=== PATIENT | female | born 1930 | race Hispanic/Latino ===

== ENCOUNTER 2017-10-16 13:54 | Emergency (ER) | payer MEDICARE, MEDICAID ==
[2017-10-16 13:54] VITALS: BMI 25.0
[2017-10-16 14:51] VITALS: BP 148/76; PULSE 65; RESP 18; TEMP 97.3; O2SAT 98
--- NOTE | 2017-10-16 16:02 | ED PDOC ---
Lower Extremity Pain/Injury Time Seen by Provider: 10/16/17 15:05 Chief Complaint (Nursing): Lower Extremity Problem/Injury Chief Complaint (Provider): Calf pain History Per: Patient History/Exam Limitations: no limitations Additional Complaint(s): 87yo female, sent to the ED by [facility] to rule out DVT. Patient states when she was being examined by the provider at [facility], she had calf pain "when he squeezed." Patient is non-ambulatory and uses a wheelchair. She denies any chest pain, shortness of breath, fever or trauma to her lower extremities. No other complaints. Past Medical History Reviewed: Historical Data, Nursing Documentation, Vital Signs Vital Signs: Last Vital Signs Temp 97.3 F L 10/16/17 14:47 Pulse 65 10/16/17 14:47 Resp 18 10/16/17 14:47 BP 148/76 10/16/17 14:47 Pulse Ox 98 10/16/17 14:47 - Medical History PMH: Arthritis, Depression, Diverticulitis, Fractures (RT HIP REPLACEMENT, RT ANKLE FX), Gall Bladder Disease (CHOLECYSTECTOMY), HTN, Peripheral Edema - Surgical History Surgical History: Cholecystectomy - Family History Family History: States: No Known Family Hx - Home Medications Home Medications: Ambulatory Orders Medication Instructions Recorded Losartan Potassium 50 mg PO DAILY 06/05/13 Morphine [Morphine Extended 30 mg PO PRN PRN 06/05/13 Release Tab] Oxycodone Hydrochloride [Oxycontin] 30 mg PO PRN PRN 06/05/13 Alprazolam [Xanax] 0.25 mg PO BID PRN 09/14/14 Furosemide [Lasix] 20 mg PO MWF 09/14/14 Magnesium Oxide 400 mg PO DAILY 09/14/14 Pantoprazole Sodium [Protonix] 40 mg PO DAILY 09/14/14 Potassium Chloride 10 mg PO MWF 09/14/14 - Allergies Allergies/Adverse Reactions: Allergies Allergy/AdvReac Type Severity Reaction Status Date / Time No Known Allergies Allergy Verified 10/16/17 14:47 Review of Systems ROS Statement: Except As Marked, All Systems Reviewed And Found Negative Constitutional: Negative for: Fever, Chills Cardiovascular: Negative for: Chest Pain Respiratory: Negative for: Shortness of Breath Musculoskeletal: Positive for: Other (calf pain upon examination at [facility]) Physical Exam - Reviewed Nursing Documentation Reviewed: Yes Vital Signs Reviewed: Yes - Physical Exam Appears: Positive for: No Acute Distress Head Exam: Positive for: ATRAUMATIC, NORMAL INSPECTION, NORMOCEPHALIC Skin: Positive for: Normal Color Eye Exam: Positive for: Normal appearance Neck: Positive for: Supple Cardiovascular/Chest: Positive for: Regular Rate, Rhythm Respiratory: Positive for: Normal Breath Sounds. Negative for: Respiratory Distress Extremity: Positive for: Calf Tenderness (bilateral), Other (bilateral lower extremities in dressings) Neurologic/Psych: Positive for: Alert, Oriented - ECG O2 Sat by Pulse Oximetry: 98 (RA) Pulse Ox Interpretation: Normal Medical Decision Making Medical Decision Making: Time: 1550 Impression: Rule out DVT Plan: -- US Duplex lower extremities bilateral Reassess 17:45 Pt refusing ultrasound on LLE. Accession No. : [id number] Patient Name / ID : OSORIO REAL / [id number] Exam Date : 10/16/2017 17:51:39 ( Approved ) Study Comment : Sex / Age : F / 87Y Creator : Luda Ojeda MD Dictator : Luda Ojeda MD Professional Programmer Analyst : Cad Engineer : Luda Ojeda MD Approver2 : Report Date : 10/16/2017 18:21:54 My Comment : Right lower extremity ultrasound. Indication: Bilateral calf pain Technique: Duplex ultrasound evaluation of the right lower extremity Comparison: None available Findings: Soft tissue edema. There is normal flow, compressibility, and augmentation of the right common femoral, femoral, and popliteal veins. The right posterior tibial veins cannot be visualized due to overlying bandage. Impression: No evidence of deep venous thrombosis in the right lower extremity as above. Soft tissue edema. Scribe Attestation: Documented by Anny Limon acting as a scribe for Yuridia Nguyen MD. Provider Attestation: All medical record entries made by the Scribe were at my direction and personally dictated by me. I have reviewed the chart and agree that the record accurately reflects my personal performance of the history, physical exam, medical decision making, and the department course for this patient. I have also personally directed, reviewed, and agree with the discharge instructions and disposition. Disposition - Clinical Impression Clinical Impression: Calf pain - Disposition Disposition: Routine/Home Disposition Time: 19:28 Condition: STABLE Additional Instructions: FOLLOW-UP WITH WOUND CARE FOR REEVALUATION. Instructions: Chronic Wound Care (ED) Forms: [employer] (Turkmen)
--- NOTE | 2017-10-16 18:23 | US ---
Right lower extremity ultrasound. Indication: Bilateral calf pain Technique: Duplex ultrasound evaluation of the right lower extremity Comparison: None available Findings: Soft tissue edema. There is normal flow, compressibility, and augmentation of the right common femoral, femoral, and popliteal veins. The right posterior tibial veins cannot be visualized due to overlying bandage. Impression: No evidence of deep venous thrombosis in the right lower extremity as above. Soft tissue edema.
== END 2017-10-16 19:58 | disposition home or self-care (01) ==
LOC: H.ER 13:54
DX: M79.605 Pain in left leg (principal); F32.9 Major depressive disorder, single episode, unspecified; I10 Essential (primary) hypertension; Z96.641 Presence of right artificial hip joint

== ENCOUNTER 2018-02-05 06:02 | Day surgery (SDC) | payer MEDICARE, MEDICAID ==
[2018-01-08 11:59] VITALS: BMI 32.3
--- NOTE | 2018-02-05 07:16 | CP.SDSHP ---
Same Day Surgery H & P - History Proposed Procedure: right lower extremity debridement of nonhealing ulcerations Pre-Op Diagnosis: Right leg nonhealing ulcerations with nonviable tissue secondary to venous stasis - Allergies Allergies: Allergies cefepime Adverse Reaction (Verified 01/08/18 23:15) ITCHING - Physical Exam Vital Signs: Vital Signs 02/05/18 02/05/18 06:37 06:39 Temperature 99 F Pulse Rate 95 H 95 H Respiratory 20 Rate Blood Pressure 130/66 O2 Sat by Pulse 96 Oximetry Mental Status: Alert & Oriented x3 - Impression Impression: Pt was seen and examined in SDS. Pt NPO status was confirmed. All Pre-op testing and clearance was in the chart. Pt has exhausted all conservative treatment at this time and is opting for surgical intervention. Pt was explained procedure and post-operative course. All pt's questions were answered to satisfaction. No guarantees were made. Pt understands all risks, benefits and complications of procedure. Pt will follow-up with Dr. Cowart - Date & Time Date: 02/05/18 Time: 07:00 Short Stay Discharge - Short Stay Discharge Admitting Diagnosis/Reason for Visit: M86.371 Disposition: REHAB FACILITY/REHAB UNIT Referrals: Radha Butt MD [Primary Care Provider] - Additional Instructions (Diet, Activity): --Patient in good/stable condition for discharge from hospital. Pt to resume medications per medical reconciliation. Resume diet. Please keep dressing clean, dry, & intact to surgical site, use plastic bag over bandage for showering, call Dr. Cowart if you see signs of infection (redness, swelling, malodor), please make an appointment to see Dr. Cowart in office/clinic within 1 week for post-op check. Progress Note/Discharge Note with Instructions: - Patient evaluated bedside in recovery s/p surgical procedure. - After surgical procedure patient in NAD - (+) Void, (+) Appetite - Capillary refill time <3s and NVSI intact. - Patient denies complaints at this time - Post operative instructions and plan of care explained to patient at length. - Pt. acknowledges understanding. - Patient stable for DC per podiatric surgery
--- NOTE | 2018-02-05 07:16 | CP.PCM.PN ---
Subjective - Date & Time of Evaluation Date of Evaluation: 02/05/18 Time of Evaluation: 07:00 - Subjective Subjective: Podiatry Perioperative Note- Dr. Cowart 87 y.o female with PMHx of Arthritis, Depression, Diverticulitis, multiple fractures, Gall Bladder Disease, HTN, Peripheral Edema, Chronic Venous stasis seen and evaluated in [facility] for right lower extremity ulcers debridement. Patient reports that she has had these wounds for a long time. She reports the wounds are extremity painful, especially to touch. Patient reports nothing to eat or drink since yesterday. Patient denies nausea, fever, shortness of breath, or chills. Denies chest pain. PMHx: Arthritis, Depression, Diverticulitis, multiple fractures, Gall Bladder Disease, HTN, Peripheral Edema, Chronic Venous stasis PSHx: Cholecystectomy Allergies: cefepime- rash MEDS: see MAR list SH: Former smoker, denies drinking or illicit drug use Objective - Vital Signs/Intake and Output Vital Signs (last 24 hours): Temp Pulse Resp BP Pulse Ox 99 F 95 H 20 130/66 96 02/05/18 06:37 02/05/18 06:39 02/05/18 06:37 02/05/18 06:37 02/05/18 06:37 - Constitutional Appears: Well, Non-toxic, No Acute Distress - Extremities Exam Extremities Exam: absent: Calf Tenderness Additional comments: Vasc: DP and PT to the right unpalpable secondary to edema, left DP and PT 1/4 bilaterally, temperature warm to cool, moderate 2+ edema noted to the right LE Ortho: severe pain with palpation to the ulcerations site Neuro: gross sensation intact, protective sensation diminished Derm: 4 ulcerations noted to the right LE Ulceration #1: anterior lower 1/3 leg measuring approximately 4.7 x 2.3 x .1 cm Ulceration #2: anterior lateral 1/3 leg measuring approximately 2 x 1 x.1 cm Ulceration #3: lateral 1/3 leg measuring approximately 2 x 1 x .1 cm Ulceration #4: posterior 1/3 leg measuring approximately 18 x 21 x .2 cm Patient's ulcerations has similar presentation: wound base mainly fibrous 70% with granular 30% tissue, periwound intact with slight maceration, wound edges intact, periwound with mild erythema, mild odor, serous-sangious drainage, no undermining, no tunneling, no probe to bone Assessment and Plan - Assessment and Plan (Free Text) Assessment: 87 y.o female with PMHx of Arthritis, Depression, Diverticulitis, multiple fractures, Gall Bladder Disease, HTN, Peripheral Edema, Chronic Venous stasis seen and evaluated in SDS for right lower extremity ulcers debridement. Plan: Pt was seen and examined in SDS Pt NPO status was confirmed All Pre-op testing and clearance was in the chart Pt has exhausted all conservative treatment at this time and is opting for surgical intervention Pt was explained procedure and post-operative course All pt's questions were answered to satisfaction No guarantees were made Pt understands all risks, benefits and complications of procedure Pt will follow-up with Dr. Cowart
[2018-02-05] MEDS ORDERED: Lidocaine 1% Inj (20ml) IJ ONE (07:17)
[2018-02-05] MEDS ORDERED: Bupivacaine HCl 0.25% PF (30 ml) Inj IJ ONE (07:17)
[2018-02-05] MEDS ORDERED: Rocuronium 10 mg/ml (5 ml) ONE (07:24)
[2018-02-05] MEDS ORDERED: Propofol 10 mg/ml Inj (20 ML) ONE (07:24)
[2018-02-05] MEDS ORDERED: ePHEDrine 50 mg/ml Inj ONE (07:24)
[2018-02-05] MEDS ORDERED: Succinylcholine 200 mg/10 ml Inj IV ONE (07:24)
[2018-02-05] MEDS ORDERED: Midazolam 2 MG/2 ML VIAL ONE (07:24)
[2018-02-05] MEDS ORDERED: Etomidate 20 mg/10ml Inj IV ONE (07:28)
[2018-02-05] MEDS ORDERED: Lactated Ringer's 1,000 ML IV ONE (07:45)
[2018-02-05] MEDS ORDERED: Lidocaine 1% Inj (20ml) ONE (07:56)
[2018-02-05] MEDS ORDERED: Bupivacaine 0.5% Inj(30mL) ONE (07:56)
[2018-02-05] MEDS ORDERED: Bacitracin Ointment 30 GM TUBE ONE (07:57)
[2018-02-05] MEDS ORDERED: Bacitracin OINT 15GM TOP ONE (08:00)
--- NOTE | 2018-02-05 08:44 | CARD ---
APPROVED REPORT EKG Measurement Heart [id number] <Conclusion> Normal sinus rhythm Nonspecific ST and T wave abnormality Abnormal ECG
[2018-02-05] MEDS ORDERED: Lactated Ringer's 500 ML IV ONE (08:57)
--- NOTE | 2018-02-05 09:00 | PCM.SURG1 ---
Surgeon's Initial Post Op Note - Surgeon's Notes Surgeon: Dr. Kin Cowart Real Estate Sales Manager: Jackie Armas, PGY1 Type of Anesthesia: General Endo Anesthesia Administered By: Dr. Murillo Pre-Operative Diagnosis: Right leg nonhealing wound with nonviable tissue due to venous stasis Operative Findings: See operative report Post-Operative Diagnosis: Right leg nonhealing wound with nonviable tissue due to venous stasis Operation Performed: Right leg wound debridement Specimen/Specimens Removed: none Estimated Blood Loss: EBL {In ML}: 1 Blood Products Given: N/A Drains Used: No Drains Post-Op Condition: Good Date of Surgery/Procedure: 02/05/18 Time of Surgery/Procedure: 09:00
[2018-02-05] MEDS ORDERED: Oxycodone/Acetaminophen 5/325 mg Tab PO PRN ×2 (09:01)
[2018-02-05] MEDS ORDERED: HYDROmorphone 0.5 mg/0.5 ml ISec IVP PRN (09:05)
[2018-02-05] MEDS ORDERED: HYDROmorphone 0.5 mg/0.5 ml ISec ONE (09:09)
[2018-02-05 09:48] VITALS: RESP 18
[2018-02-05] MEDS ORDERED: oxyCODONE 5 mg Immediate Release Tab PO PRN (11:34)
[2018-02-05] MEDS ORDERED: Morphine 15 mg SR Tab PO SCH (11:45)
[2018-02-05 11:51] VITALS: BP 114/67; PULSE 81; TEMP 98.6; O2SAT 97
--- NOTE | 2018-02-06 06:07 | OP ---
PROCEDURE DATE: 02/05/2018 PREOPERATIVE DIAGNOSIS: Right leg nonhealing wound with nonviable tissue due to venous stasis. POSTOPERATIVE DIAGNOSIS: Right leg nonhealing wound with nonviable tissue due to venous stasis. NAME OF PROCEDURE: Right leg wound debridement. SURGEON: Kin Cowart DPM ADOBE MAKER: Priscilla Armas DPM, PGY-1 ANESTHESIOLOGIST: Dr. Murillo. TYPE OF ANESTHESIA: General. INDICATIONS: The patient is an 87-year-old female with the above-diagnosis. Patient complains of persisting pain to the posterior aspect of her right leg and ulcerations remain nonhealing. The patient has exhausted conservative treatment at this time and now requests surgical intervention. The patient signed the consent after careful explanation of the risks, benefits, complications, and alternatives to surgical procedure and wishes to proceed. No guarantees were given or implied. PREPARATION: The patient was brought into the operating room and placed on the operating room table in a supine position. A time-out was performed for identification of the correct patient and procedure. After the induction of general anesthesia, the right lower extremity was then prepped and draped in normal sterile manner and the procedure began. DESCRIPTION OF PROCEDURE: Attention was directed to the posterior aspect of the right leg where a full-thickness ulceration extending into subcutaneous tissue, measuring approximately 27 x 18 cm was noted; it was found to have a mixture of fibrin slough and black, necrotic tissue at its posterolateral aspect. There was a second superficial ulceration on the anterior aspect of the patient's right ankle measuring approximately 4.5 x 2.7 x 2.1 cm. Utilizing a #15 blade, the necrosis was excisionally debrided to healthy, bleeding tissue. Once all nonviable tissue was noted to be debrided, using the Versajet II system on setting 7, the ulceration was excisionally debrided of fibrotic and nonviable tissue until a mix of subcutaneous tissue and healthy bleeding granular tissue repaired. No purulent drainage was expressed in the ulcer. Xeroform with bacitracin was then applied to the posterior ulceration and then dressed with sterile gauze, ABDs, Cristina, Kerlix, and an Amari wrap. POSTOPERATIVE CONDITION: The patient tolerated the anesthesia and procedure well and was escorted to the recovery room with vital signs stable and neurovascular status intact to the right lower extremity. The patient is to keep the dressing clean, dry and intact. The patient will follow up with Dr. Cowart in the wound care center. Priscilla Armas DPM Kin Cowart DPM JOSEF
[2018-02-06] MEDS ORDERED: Potassium Chloride 20 mEq ER Tab PO SCH (09:00)
== END 2018-02-05 12:50 ==
LOC: H.OPSURG 06:02
PROVIDERS: ATTEND Student in an Organized Health Care Education/Training Program
DX: M86.371 Chronic multifocal osteomyelitis, right ankle and foot (principal); I10 Essential (primary) hypertension; M19.90 Unspecified osteoarthritis, unspecified site; I89.0 Lymphedema, not elsewhere classified; F32.9 Major depressive disorder, single episode, unspecified; L97.919 Non-pressure chronic ulcer of unspecified part of right lower leg with unspecified severity; Z87.891 Personal history of nicotine dependence; I87.8 Other specified disorders of veins
CPT/HCPCS: 11042; 93005; J0330; J1170; J2001; J2250; J2704; J2765; J3010; J7030; J7120